=== PATIENT | female | born 1975 ===

== ENCOUNTER 2022-05-03 14:02 | Emergency (ER) | payer SELFPAY ==
[2022-05-03 17:33] LABS: Basophils % (Auto) 0.3 % (0.0-1.8); Eosinophils # (Auto) 0.1 K/mm3 (0.0-0.4); Eosinophils % (Auto) 1.3 % (0.0-4.3); Hematocrit 33.1 % (30.3-42.9); Hemoglobin 11.1 gm/dl (10.1-14.3); Mean Corpuscular HGB Conc 34 % (30-34); Mean Corpuscular Volume 95 fl (79-97); Monocytes % (Auto) 14.7 % (0.0-7.3); Platelet Count 225 K/mm3 (140-440); Red Blood Count 3.49 M/mm3 (3.65-5.03); Red Cell Distribution Width 14.1 % (13.2-15.2)
[2022-05-03 17:41] LABS: INR 0.85 (0.87-1.13)
[2022-05-03 17:49] LABS: Blood Urea Nitrogen 8 mg/dL (7-17); Calcium 9.5 mg/dL (8.4-10.2); Hemolysis Index 12
[2022-05-03 18:01] LABS: BUN/Creatinine Ratio 11
--- NOTE | 2022-05-04 17:49 | Electrocardiograph Report ---
[facility] Test Date: 2022-05-03 Test Time: 15:09:19 Pat Name: VINCE BARBA Department: Room: Gender: F Gym Teacher: DAISHA : 1975 Requested By: JULY WHITE Order Number: [id number] Reading MD: Evans Nguyen Measurements Intervals [place] Rate: 87 P: 65 ID: [id number] QRS: 4 QRSD: 94 T: 15 QT: 394 QTc: 474 Interpretive Statements Sinus rhythm Probable left atrial enlargement No previous ECG available for comparison Electronically Signed On 05-04-2022 17:48:57 EDT by Evans Nguyen
== END 2022-05-04 01:05 | disposition left against medical advice (07) ==
LOC: ED 14:02
DX: R07.9 Chest pain, unspecified (principal); Z53.21 Procedure and treatment not carried out due to patient leaving prior to being seen by health care provider
CPT/HCPCS: 36415; 80048; 82140; 84484; 85025; 85610; 87040; 93005